=== PATIENT | female | born 1965 | race African-American/Black ===

== ENCOUNTER 2017-02-08 05:51 | Inpatient (IN) | payer OTHER ==
--- NOTE | ~2017-02-08 | PN ---
Unit #: [id number] #: [id number] Patient: GREGORIA VELEZ [id number] [facility] [address] [place] [address] [id number] MR#: [id number] NAME: GREGORIA VELEZ ROOM: [facility] Age: 51 Sex: F Admission Date: 02/08/2017 : 1965 Attending Physician: Enoch Orantes M.D. Admitting Physician: Enoch Orantes M.D. Primary Care Physician: Generic Doctor Not In System [facility] PROGRESS NOTES Please note: This report has been placed on the patient's electronic medical record in an incomplete status following multiple physician notifications for completion without response or resolution. DATE 02/11/2017 DISCUSSION Ms. Velez is a 51-year-old female who was seen today and chart was reviewed and discussed with the staff. The patient has been anxious, withdrawn and rather seclusive to herself. Meanwhile, she has been cooperative with treatment recommendations and has been showing improvement in depression and anxiety. MENTAL STATUS EXAMINATION was casually dressed with fair personal hygiene concentration. Her mood was anxious with a congruent suicidal or homicidal ideations and also denied any auditory or visual hallucinations. Her insight and judgement remain slightly impaired. TREATMENT PLAN 1. Will continue on current medications and treatment protocol. response Dictated by... Enoch Orantes M.D. IAA/dzh TD: 02/11/2017 20:14 JOB #: [id number] Unit #: [id number] #: [id number] Patient: GREGORIA VELEZ PROGRESS NOTES Page 1 of 1 X Enoch Orantes MD X PROGRESS NOTE
--- NOTE | ~2017-02-08 | DS ---
Unit #: [id number] #: [id number] Patient: [facility] [id number] [facility] [address] [place] [address] [id number] MR#: [id number] NAME: GREGORIA VELEZ ROOM: 74 Age: 51 Sex: F Admission Date: 02/08/2017 : 1965 Discharge Date: 02/13/2017 Attending Physician: Enoch Orantes M.D. DISCHARGE SUMMARY IDENTIFYING DATA Ms. Velez is a 51-year-old single female, who is a resident of [place], [place], and was self-referred to the hospital. DISCHARGE DIAGNOSES Psychiatric: Opioid dependence, moderate and acute withdrawals; alcohol dependence, moderate and acute withdrawals; opioid-induced mood disorder. Medical: None. Stressors: Moderate psychosocial stressors. HISTORY OF PRESENT ILLNESS Please see initial psychiatric evaluation for details. PAST PSYCHIATRIC HISTORY Please see initial psychiatric evaluation for details. PAST MEDICAL HISTORY Please see initial psychiatric evaluation for details. HOSPITAL COURSE The patient was admitted to the adult chemical dependency unit at [facility] and was oriented to the hospital environment. Routine p.r.n. medications were initiated, and she was started back on her home medications and detox protocol was initiated and she was closely monitored. She was taking the medications regularly and was tolerating them fairly well with no reported side effects and was wanting to go home and was willing to continue treatment on an outpatient basis and as such, it was decided that she will be discharged home and will continue treatment. DISCHARGE MEDICATIONS None. DISCHARGE CONDITION Stable. PROGNOSIS Fair. Dictated by... Enoch Orantes M.D. IAA/modl Unit #: [id number] #: [id number] Patient: GREGORIA VELEZ TD: 02/13/2017 06:29 JOB #: [id number] DISCHARGE SUMMARY Page 1 of 1 X Enoch Orantes MD X DISCHARGE SUMMARY
--- NOTE | ~2017-02-08 | PA ---
Unit #: [id number] #: [id number] Patient: GREGORIA VELEZ [id number] [facility] [address] [place] [address] [id number] I MR#: [id number] NAME: GREGORIA VELEZ ROOM: P174 Age: 51 Sex: F Admission Date: 02/08/2017 : 1965 Date of Assessment: Attending Physician: Enoch Orantes M.D. Admitting Physician: Enoch Orantes M.D. Primary Care Physician: Generic Doctor Not In System PSYCHIATRIC ASSESSMENT DATE OF SERVICE 02/08/2017. IDENTIFYING DATA Ms. Hampton is a 51-year-old single female who is a resident of [place], [place] and was self-referred to the hospital on a voluntary basis. CHIEF COMPLAINT Suicidal ideation. "My plan is to overdose on heroin." HISTORY OF PRESENT ILLNESS Ms. Hampton is a 51-year-old female who was self-referred to the hospital reporting increasing depression and suicidal ideation and plan to overdose and having reports she snorts 2 points of heroin on daily basis and reports that she has been using heroin for about 20 years on and off and reports her last use was yesterday morning. She reports that she has been using heroin for the past 7 years and that she drinks 24-ounce beers on daily basis and that she has been drinking beer for the past 20 years as well. Upon presentation, her COWS score was 18 indicating significant opioid withdrawals. The patient does report increasing depression, anxiety, irritability, restlessness, inability to function or perform activities of daily living, feelings of hopelessness and helplessness, and suicidal ideations with intent and plan to overdose on opiates and as such, recommendation for inpatient level of care for safety and stabilization was made. SUBSTANCE ABUSE HISTORY The patient has history of alcohol and opioid abuse, and currently opioids, particularly heroin appears to be her drug of choice. PAST PSYCHIATRIC HISTORY The patient has had history of inpatient chemical dependency treatment in [place] and in [place] and currently she is not active in any treatment program. Review of the medical records indicate currently she is not seeing a psychiatrist, and not taking any psychotropic medications. PAST MEDICAL HISTORY No acute or chronic medical illnesses. ALLERGIES No known medication allergies. Unit #: [id number] #: [id number] Patient: GREGORIA VELEZ CURRENT MEDICATIONS None. PERSONAL AND SOCIAL HISTORY A 51-year-old female who reports that she is single, unemployed, and lives by herself and has poor social support system. MENTAL STATUS EXAMINATION Middle-aged female who was casually dressed with fair personal hygiene, appears to be in no acute distress or discomfort. She was awake and alert on interaction with intact orientation to time, place, and person. Her mood was anxious and depressed with a congruent affect. Her speech was slow and restricted in content. Her thought processes were disorganized with some looseness of associations and suicidal ideations. Her insight and judgment remains significantly impaired. DIAGNOSTIC IMPRESSION Psychiatric: Opioid dependence, moderate acute withdrawals; alcohol dependence, moderate and acute withdrawals; opioid-induced mood disorder. Medical: None. Stressors: Moderate psychosocial stressors. TREATMENT PLAN 1. The patient has presented with history of substance abuse and mood disorder, and has been decompensating and will need inpatient hospitalization for detoxification, safety, and stabilization. We will start her on detox protocol. We will closely monitor for any worsening withdrawal symptoms. 2. Supportive therapy was provided to the patient. 3. Safe, structured, and nourishing environment will be provided. ESTIMATED LENGTH OF STAY 5 to 7 days. ABILITY TO HELP SELF Limited. WILLINGNESS TO HELP SELF The patient appears to be willing to help self. STRENGTHS 1. Communicative. 2. Cooperative. PROBLEMS 1. Chronic dysphoric symptoms. 2. Chronic chemical dependency. 3. Poor social support system. DISCHARGE CRITERIA This will be contingent upon the patient's ability to go through detox without having any significant withdrawal symptoms as well as her ability to stay safe to herself, particularly after discharge from the hospital. Dictated by... Enoch Orantes M.D. Unit #: [id number] #: [id number] Patient: GREGORIA VELEZ IAA/modl TD: 02/08/2017 13:04 JOB #: [id number] PSYCHIATRIC ASSESSMENT Page 1 of 1 X Enoch Orantes MD PSYCHIATRIC ASSESSMENT
--- NOTE | ~2017-02-08 | PN ---
Unit #: [id number] #: [id number] Patient: GREGORIA VELEZ [id number] [facility] [address] [place] [address] [id number] I MR#: [id number] NAME: GREGORIA VELEZ ROOM: [facility] Age: 51 Sex: F Admission Date: 02/08/2017 : 1965 Attending Physician: Enoch Orantes M.D. Admitting Physician: Enoch rOantes M.D. Primary Care Physician: Katy Doctor Not In System [facility] PROGRESS NOTES DATE 02/10/2017 DISCUSSION Ms. Velez is a 51-year-old -[place] female who was seen today and chart was reviewed. Her case was discussed with the staff. The patient has been anxious, withdrawn and rather seclusive to herself and has been experiencing persistent depressive symptoms. Meanwhile, she has been cooperative with treatment recommendations and has been taking her medications and tolerating them fairly well with no reported side effect. MENTAL STATUS EXAMINATION Middle-aged female, who was casually dressed with fair personal hygiene, appears to be in no acute distress or discomfort. She was awake and alert on interaction with intact orientation. Her mood is anxious with a congruent affect. The patient denies any suicidal or homicidal ideations. Her insight and judgment remain slightly impaired. PLAN 1. Continue on current medication and treatment protocol. We will monitor her response to medication. We will make further adjustments as needed. 2. We will continue to followup. Dictated by... Sean Khoury/anh TD: 02/11/2017 09:45 JOB #: [id number] [facility] PROGRESS NOTES Page 1 of 1 X Enoch Orantes MD PROGRESS NOTE
--- NOTE | ~2017-02-08 | PN ---
Unit #: [id number] #: [id number] Patient: GREGORIA VELEZ [id number] [facility] [address] [place] [address] [id number] MR#: [id number] NAME: GREGORIA VELEZ ROOM: [facility] Age: 51 Sex: F Admission Date: 02/08/2017 : 1965 Attending Physician: Enoch Orantes M.D. Admitting Physician: Enoch Orantes M.D. Primary Care Physician: Katy Doctor Not In System [facility] PROGRESS NOTES DATE 02/12/2017 DISCUSSION Ms. Velez is a 51-year-old female who was seen today and chart was reviewed and case was discussed with the staff. She has been anxious, withdrawn, rather seclusive to herself. Meanwhile, she has been cooperative with treatment recommendations and has been taking medications and tolerating them fairly well with no reported side effects. MENTAL STATUS EXAMINATION Middle-aged female who was casually dressed with fair personal hygiene and appears to be in no acute distress or discomfort. She was awake and alert with impaired attention and concentration. Her mood was anxious with congruent affect. She denies any suicidal/homicidal ideation and also denies any auditory or visual hallucinations. Her insight and judgement remains slightly impaired. TREATMENT PLAN 1. Will continue on current treatment protocol. Will monitor her response to the medications and make further adjustments as needed. 2. Will continue to follow up. Dictated by... Enoch Orantes M.D. IAA/yosef TD: 02/12/2017 15:55 JOB #: [id number] Unit #: [id number] #: [id number] Patient: GREGORIA VELEZ [facility] PROGRESS NOTES Page 1 of 1 X Enoch Orantes MD X PROGRESS NOTE
--- NOTE | ~2017-02-08 | PN ---
Unit #: [id number] #: [id number] Patient: GREGORIA VELEZ [id number] [facility] [address] [place] [address] [id number] I MR#: [id number] NAME: GREGORIA VELEZ ROOM: [facility] Age: 51 Sex: F Admission Date: 02/08/2017 : 1965 Attending Physician: Enoch Orantes M.D. Admitting Physician: Sean Khoury PROGRESS NOTES DATE OF SERVICE: 02/09/2017 SUBJECTIVE Ms. Velez is a 51-year-old female with mood disorder and substance abuse, who was seen today and chart was reviewed and the case was discussed with the staff. She has been anxious, withdrawn, and rather seclusive to herself. Meanwhile, she has been cooperative with the treatment recommendations and has been taking the medications and tolerating them fairly well with no reported side effects. MENTAL STATUS EXAMINATION Middle-aged female, who was casually dressed with fair personal hygiene, appears to be in no acute distress or discomfort. She was awake and alert with impaired attention and concentration. Her mood was anxious with a congruent affect. She denies any suicidal or homicidal ideations. Her insight and judgment remain slightly impaired. TREATMENT PLAN 1. We will continue her on her current medications and treatment protocol. We will monitor her response and make further adjustments as needed. 2. We will continue to follow up. Dictated by... Sean Khoury/francesl TD: 02/09/2017 14:52 JOB #: [id number] [facility] PROGRESS NOTES Page 1 of 1 X Enoch Orantes MD PROGRESS NOTE
--- NOTE | ~2017-02-08 | HP ---
Unit #: [id number] #: [id number] Patient: GREGORIA VELEZ [id number] [place] [address] [id number] I MR#: [id number] NAME: GREGORIA VELEZ ROOM: 74 Age: 51 Sex: F Admission Date: 02/08/2017 : 1965 Attending Physician: Enoch Orantes M.D. Admitting Physician: Enoch Orantse M.D. Primary Care Physician: Generic Doctor Not In System HISTORY AND PHYSICAL HISTORY OF PRESENT ILLNESS Gregoria is a 51 year old admitted to [facility] because of her drug use. She snorts heroin. PAST MEDICAL HISTORY 1. Long history of opioid abuse to include snorting heroin. 2. Obesity. PAST SURGICAL HISTORY Nothing reported. ALLERGIES No known drug allergies. SOCIAL HISTORY Smokes one pack per day. Denies alcohol. Admits to a long history of opioid abuse to include snorting heroin. FAMILY HISTORY Medically noncontributory. REVIEW OF SYSTEMS CONSTITUTIONAL: No fever or chills. HEENT: Denies any sore throat, ear pain or runny nose. CARDIOVASCULAR: Denies chest pain, irregular heart rhythm or palpitations. CHEST: Denies shortness of breath or cough. No hemoptysis. GASTROINTESTINAL: Denies nausea, vomiting, diarrhea or chronic constipation. ENDOCRINE: Denies history of increased thirst or urination. No recent significant weight loss or gain. GENITOURINARY: Denies dysuria, frequency, or hematuria. SKIN: Denies any rashes. HEMATOLOGIC: Denies history of increased bleeding or bruising. MUSCULOSKELETAL: Denies any hot, swollen joints. No generalized muscle pain. NEUROLOGIC: Denies problems with vision or speech. No frequent, severe headaches. No numbness, tingling or weakness in any extremities. Denies loss of bladder or bowel control. CURRENT MEDICATIONS Detox protocol Unit #: [id number] #: [id number] Patient: RGEGORIA VELEZ PHYSICAL EXAMINATION GENERAL: Alert, obese, in no apparent distress. VITAL SIGNS: Blood pressure 156/82, heart rate 56, respirations 16, temperature 98.6. WEIGHT: 153 pounds. HEIGHT: 5'2". SKIN: Warm and dry without rash or lesion. HEENT: Normocephalic. TMs not viewed. Oral and nasal passages clear. Conjunctivae clear. Pupils equal, round and reactive to light and accommodation. Extraocular movements intact. NECK: Supple without lymphadenopathy or thyromegaly. HEART: Regular rate and rhythm without murmur. LUNGS: Clear. ABDOMEN: Soft, nontender. : Not done. EXTREMITIES: No evidence of cyanosis, clubbing or edema. Moves all extremities without focal deficit. NEUROLOGICAL: Grossly within normal limits. Cranial Nerves: II: Visual lemus are intact. III, IV AND : Extraocular movements are intact. Pupils are equal, round and reactive to light. V: Facial sensation is grossly normal. VII: Facial movements and expression are normal. VIII: Auditory acuity grossly intact. IX, X: Uvula is midline. Phonation is normal. XI: Patient shrugs shoulders and turns head normally. XII: Tongue protrudes in the midline. Sensory and Motor Function: Sensory and motor sensation is grossly normal. Motor: moves all extremities well. Coordination: Gait is normal. Deep Tendon Reflexes: Intact. IMPRESSION Psychiatric admission RECOMMENDATIONS PSYCHIATRIC: Per psychiatrist. MEDICAL: I see no contraindications to participating in facility's activities. MEDICAL PROGNOSIS Good. MEDICAL CONDITION Stable. Dictated by... Juliana Peter PJoeAJoe-Rolando. for Sean Walter/sybil TD: 02/08/2017 23:48 JOB #: [id number] Unit #: [id number] #: [id number] Patient: GREGORIA VELEZ HISTORY AND PHYSICAL Page 1 of 1 X Juliana Peter X HISTORY AND PHYSICAL
[2017-02-09 09:46] LABS: BASOPHIL# 0.1 X10e3 (0-0.3); BASOPHIL% 1.1 % (0-2.5); EOSINOPHIL# 0.1 X10e3 (0-0.7); EOSINOPHIL% 0.8 % (0.0-7.0); HEMATOCRIT 29.1 % (35.0-45.0); LYMPHOCYTE# 1.8 X10e3 (1.0-3.5); LYMPHOCYTE% 26.4 % (17.0-45.0); MEAN CELL VOLUME 64.5 FL (83-96); MEAN CORPUSCULAR HGB CONC 31.1 g/dL (30-36); MEAN PLATELET VOLUME 9.3 FL (6.5-11.5); MONOCYTE# 0.6 X10e3 (0-1.0); MONOCYTE% 8.3 % (3.0-12.0); NEUTROPHIL# 4.3 X10e3 (1.5-7.1); NEUTROPHIL% 63.4 % (40-75); PLATELET COUNT 286 X10e3 (140-420); RED BLOOD COUNT 4.51 X10e (3.90-5.30); RED CELL DISTRIBUTION WIDTH 19.4 % (11.0-15.5); WHITE BLOOD COUNT 6.8 X10e3 (4.0-10.5)
[2017-02-09 09:46] LABS: URINE APPEARANCE CLEAR; URINE BILIRUBIN NEG (NEG); URINE BLOOD NEG (NEG); URINE COLOR DK YELLOW; URINE GLUCOSE NEG (NEG); URINE KETONE NEG (NEG); URINE LEUKOCYTE ESTERASE NEG (NEG); URINE NITRATE NEG (NEG); URINE PH 5.5 (5-8); URINE PROTEIN NEG (NEG); URINE SPECIFIC GRAVITY 1.015 (1.003-1.035); URINE UROBILINOGEN 0.2 MG/DL (NEG)
[2017-02-09 09:53] LABS: DIFF IND YES
[2017-02-09 10:11] LABS: AMPHETAMINE NEG (NEG); BARBITURATES NEG (NEG); BENZODIAZEPINES POS (NEG); COCAINE NEG (NEG); MARIJUANA NEG (NEG); OPIATES POS (NEG); TRICYCLIC ANTIDEPRESSANTS NEG (NEG); U METHADONE NEG (NEG)
[2017-02-09 10:13] LABS: ALBUMIN SERUM 3.4 g/dL (3.5-5.0); BILIRUBIN,TOTAL 0.4 mg/dL (0.2-2.0); BUN/CREATININE RATIO 8.75; CALCIUM SERUM 8.8 mg/dL (8.4-10.2); CREATININE SERUM 0.8 mg/dL (0.6-1.4); POTASSIUM 4.3 mmol/L (3.5-5.1); PROTEIN TOTAL SERUM 6.1 g/dL (6.0-8.3)
[2017-02-09 11:04] LABS: ANISOCYTOSIS MOD; HYPOCHROMIA SL; PLATELET ESTIMATE NORMAL (NORMAL)
[2017-02-09 11:05] LABS: MICROCYTOSIS SL; TARGET CELLS SL
[2017-02-09 13:38] LABS: THYROID STIMULATING HORMONE 1.31 uIU/ml (0.34-5.60)
[2017-02-09 13:45] LABS: FREE THYROXIN (T4) 0.66 ng/dL (0.58-1.64)
== END 2017-02-13 09:10 | disposition home or self-care (01) | DRG 897 ==
LOC: P1E 05:51
PROVIDERS: Psychiatry & Neurology Psychiatry
DX: F11.23 Opioid dependence with withdrawal (principal); R45.851 Suicidal ideations; F10.239 Alcohol dependence with withdrawal, unspecified; F11.24 Opioid dependence with opioid-induced mood disorder; E66.9 Obesity, unspecified; F17.210 Nicotine dependence, cigarettes, uncomplicated
CPT/HCPCS: 80053; 80307; 81003; 84439; 84443; 84703; 85025; 86592